=== PATIENT | male | born 1965 | race Caucasian/White ===

== ENCOUNTER 2022-10-11 08:16 | Day surgery (SDC) | payer BC ==
[2022-10-02 16:01] LABS: BASOPHILS # (AUTO) 0.1 X10'3 (0-0.2); BASOPHILS % (AUTO) 1.3 % (0-1); EOSINOPHILS # (AUTO) 0.2 X10'3 (0-0.9); EOSINOPHILS % (AUTO) 4.1 % (0-6); LYMPHOCYTES # (AUTO) 1.2 X10'3 (1.1-4.8); LYMPHOCYTES % (AUTO) 22.6 % (21-51); MEAN CORPUSCULAR HEMOGLOBIN 32.8 PG (27.0-31.0); MEAN CORPUSCULAR HGB CONC 33.9 g/dL (33.0-36.5); MEAN CORPUSCULAR VOLUME 96.6 FL (78-98); MEAN PLATELET VOLUME 6.8 FL (7.4-10.4); MONOCYTES # (AUTO) 0.6 X10'3 (0-0.9); MONOCYTES % (AUTO) 10.5 % (2-12); NEUTROPHILS # (AUTO) 3.3 X10'3 (1.8-7.7); NEUTROPHILS % (AUTO) 61.5 % (42-75); PRE OP HEMATOCRIT 37.4 % (42.0-52.0); PRE OP HEMOGLOBIN 12.7 g/dL (14.0-17.9); PRE OP PLATELET COUNT 230 X10'3 (140-440); RED BLOOD COUNT 3.87 X10'6 (4.70-6.10); RED CELL DISTRIBUTION WIDTH 12.8 % (11.5-14.5)
[2022-10-02 16:22] LABS: ALBUMIN 4.4 G/DL (3.4-5.0); ALBUMIN/GLOBULIN RATIO 1.4 (1.1-1.5); ALKALINE PHOSPHATASE 70 IU/L (46-116); BLOOD UREA NITROGEN 16 MG/DL (7-18); BUN/CREATININE RATIO 17.2 (5.4-32.0); CALCIUM 9.3 MG/DL (8.5-10.1); CHLORIDE 105 MMOL/L (99-107); CREATININE 0.93 MG/DL (0.60-1.10); PRE OP ALT 26 U/L (30-65); PRE OP ANION GAP 7 (8-16); PRE OP AST 27 U/L (10-37); PRE OP BILIRUB, TOTAL 0.8 MG/DL (0.0-1.0); PRE OP GLUCOSE 87 MG/DL (70-104); PRE OP POTASSIUM 4.1 MMOL/L (3.4-5.1); PRE OP SODIUM 139 MMOL/L (135-145); TOTAL CARBON DIOXIDE 26.8 MMOL/L (24-32); TOTAL PROTEIN 7.6 G/DL (6.4-8.2); eGFR 83 ML/MIN
[~2022-10-11] VITALS: Ht 172.7 cm; Wt 78.3 kg
[2022-10-11] VITALS (9 sets, daily range): BP systolic 152–196; BP diastolic 83–108
[~2022-10-11 08:16] MED LIST: ASPI-612 PO; ATOR-2 PO; BUPIVAcaine/PF 5 mg/ml 10ml ONE; LISI10TA27 PO; cefazolin 2gm/D5W 100mL 100 ML IV ONE; famotidine 20mg tablet PO ONE; ringers solution, lacted 1,000 ML IV SCH
[2022-10-11] MEDS ORDERED: LIDOcaine 0.5% (5mg/ml) 50ml vial ONE (08:33)
[2022-10-11] MEDS ORDERED: ondansetron/PF 4mg/2ml inj IV PRN (09:45)
[2022-10-11] MEDS ORDERED: meperidine/PF 25mg/ml syringe IV PRN ×3 (09:45)
[2022-10-11] MEDS ORDERED: ringers solution, lacted 1,000 ML IV SCH (09:45)
[2022-10-11] MEDS ORDERED: proCHLORperazine 10 MG/2 ml inj IV PRN (09:45)
[2022-10-11] MEDS ORDERED: morphine 4 MG/ML inj SYRINge IV PRN (09:45)
[2022-10-11] MEDS ORDERED: morphine 2 MG/ML inj. syringe IV PRN (09:45)
[2022-10-11] MEDS ORDERED: fentaNYL/PF 50MCG/1 ML 2ML syringe ONE (10:24)
[2022-10-11] MEDS ORDERED: midazolam 1 mg/ML 2ml injection ONE (10:24)
[2022-10-11] MEDS ORDERED: BUPIVAcaine/PF 5 mg/ml 10ml IJ ONE (10:42)
--- NOTE | 2022-10-11 10:54 | NUR ---
ALL DISCHARGE CRITERIA HAS BEEN MET. BP IS AT 196/106, UPDATED DR. TORRES AND INSTRUCTED PATIENT TO TAKE HOME ANTIHYPERTENSIVE MEDICATION AND APPROVED PATIENT TO GO HOME, DENIES PAIN, VOIDING AND ABLE TO SAFELY AMBULATE AND TRANSFER SELF. IV TAKEN OUT WITHOUT ANY COMPLICATIONS. ALL DISCHARGE INSTRUCTIONS COVERED WITH PATIENT AND ALL QUESTIONS ANSWERED. PATIENT TAKEN OUT VIA WHEELCHAIR WITH ALL BELONGINGS TO PERSONAL VEHICLE WHERE FAMILY DROVE PATIENT HOME. Addendum: 10/11/22 at 1232 by Luis A Harvey RN Amended: Links added.
--- NOTE | 2022-10-11 10:54 | NUR ---
Received from OR via [facility], accompanied by Anesthesiologist and report given by MELISSA Anesthesiologist. PATIENT WAKING UP, DENIES PAIN, V/S WNL, PIV 20G TO RIGHT HAND, LEFT WRIST DRESSING C/D/I. ICE AND ELEVATED LUE. Addendum: 10/11/22 at 1116 by Lusi A Harvey RN Amended: Links added.
== END 2022-10-11 12:24 | disposition home or self-care (01) ==
LOC: PAS 08:16 → EDBD 13:45
PROVIDERS: ATTEND Orthopaedic Surgery Hand Surgery
DX: G56.02 Carpal tunnel syndrome, left upper limb (principal); I10 Essential (primary) hypertension; F17.220 Nicotine dependence, chewing tobacco, uncomplicated; Z79.899 Other long term (current) drug therapy; Z79.82 Long term (current) use of aspirin; Z88.2 Allergy status to sulfonamides; Z98.890 Other specified postprocedural states; Z72.89 Other problems related to lifestyle; Z86.73 Personal history of transient ischemic attack (TIA), and cerebral infarction without residual deficits
CPT/HCPCS: 36415; 64721; 80053; 82948; 85025; 93005; J2175; J2250; J3010; J3490; J7030; J7120; Z7506; Z7512; A4215; A7000

== ENCOUNTER 2022-11-08 06:32 | Day surgery (SDC) | payer BC ==
[2022-11-04 11:28] LABS: BASOPHILS % (AUTO) 0.4 % (0-1); EOSINOPHILS # (AUTO) 0.1 X10'3 (0-0.9); EOSINOPHILS % (AUTO) 1.4 % (0-6); LYMPHOCYTES # (AUTO) 1.4 X10'3 (1.1-4.8); LYMPHOCYTES % (AUTO) 21.9 % (21-51); MEAN CORPUSCULAR HEMOGLOBIN 32.8 PG (27.0-31.0); MEAN CORPUSCULAR HGB CONC 34.3 g/dL (33.0-36.5); MEAN CORPUSCULAR VOLUME 95.4 FL (78-98); MEAN PLATELET VOLUME 6.4 FL (7.4-10.4); MONOCYTES # (AUTO) 0.5 X10'3 (0-0.9); MONOCYTES % (AUTO) 8.2 % (2-12); NEUTROPHILS # (AUTO) 4.2 X10'3 (1.8-7.7); NEUTROPHILS % (AUTO) 68.1 % (42-75); PRE OP HEMATOCRIT 40.5 % (42.0-52.0); PRE OP HEMOGLOBIN 13.9 g/dL (14.0-17.9); PRE OP PLATELET COUNT 281 X10'3 (140-440); RED BLOOD COUNT 4.25 X10'6 (4.70-6.10); RED CELL DISTRIBUTION WIDTH 12.5 % (11.5-14.5)
[2022-11-04 11:35] LABS: ALBUMIN 4.8 G/DL (3.4-5.0); ALBUMIN/GLOBULIN RATIO 1.4 (1.1-1.5); ALKALINE PHOSPHATASE 76 IU/L (46-116); BLOOD UREA NITROGEN 13 MG/DL (7-18); BUN/CREATININE RATIO 13.5 (10.0-20.0); CALCIUM 9.5 MG/DL (8.5-10.1); CHLORIDE 100 MMOL/L (99-107); CREATININE 0.96 MG/DL (0.60-1.10); PRE OP ALT 38 U/L (30-65); PRE OP ANION GAP 12 (8-16); PRE OP AST 31 U/L (10-37); PRE OP BILIRUB, TOTAL 0.9 MG/DL (0.0-1.0); PRE OP GLUCOSE 118 MG/DL (70-104); PRE OP POTASSIUM 4.7 MMOL/L (3.4-5.1); PRE OP SODIUM 136 MMOL/L (135-145); TOTAL CARBON DIOXIDE 24.1 MMOL/L (24-32); TOTAL PROTEIN 8.3 G/DL (6.4-8.2); eGFR 80 ML/MIN
[~2022-11-08] VITALS: Ht 172.7 cm; Wt 78.7 kg
[~2022-11-08 06:32] MED LIST changes: -BUPIVAcaine/PF 5 mg/ml 10ml ONE; +FAMO-128 PO; +FOLIC ACID; +IBUP-24 PO; +LIDOcaine 0.5% (5mg/ml) 50ml vial ONE; +LORA10TA61 PO; +VITAMIN D3
[2022-11-08] MEDS ORDERED: BUPIVAcaine/PF 2.5mg/ml (0.25%) 10ml vial ONE (06:43)
[2022-11-08 08:09] VITALS: BP 134/87
[2022-11-08] MEDS ORDERED: fentaNYL/PF 50MCG/1 ML 2ML syringe ONE (08:18)
[2022-11-08] MEDS ORDERED: midazolam 1 mg/ML 2ml injection ONE (08:18)
[2022-11-08 08:37] VITALS: BP 155/93
--- NOTE | 2022-11-08 08:37 | NUR ---
Received from OR via [facility], accompanied by Anesthesiologist and report given by MELISSA Anesthesiologist. PATIENT WAKING UP, DENIES PAIN, V/S WNL, SCD ON, PIV 20G TO LEFT HAND, RIGHT WRIST DRESSING C/D/I. ICE AND ELEVATED RUE. Addendum: 11/08/22 at 0857 by Luis A Harvey RN Amended: Links added.
[2022-11-08 08:40] VITALS: BP 162/94
[2022-11-08 08:50] VITALS: BP 160/85
[2022-11-08 09:00] VITALS: BP 150/95
--- NOTE | 2022-11-08 09:17 | NUR ---
ALL DISCHARGE CRITERIA HAS BEEN MET. VSS, PAIN AT A TOLERABLE LEVEL, VOIDING AND ABLE TO SAFELY AMBULATE AND TRANSFER SELF. IV TAKEN OUT WITHOUT ANY COMPLICATIONS. ALL DISCHARGE INSTRUCTIONS COVERED WITH PATIENT AND ALL QUESTIONS ANSWERED. PATIENT TAKEN OUT VIA WHEELCHAIR WITH ALL BELONGINGS TO PERSONAL VEHICLE WHERE FAMILY DROVE PATIENT HOME. Addendum: 11/08/22 at 0917 by Luis A Harvey RN Amended: Links added.
== END 2022-11-08 09:17 | disposition home or self-care (01) ==
LOC: EDBD → PAS 06:32
PROVIDERS: ATTEND Orthopaedic Surgery Hand Surgery
DX: G56.01 Carpal tunnel syndrome, right upper limb (principal); I10 Essential (primary) hypertension; Z79.899 Other long term (current) drug therapy; Z98.890 Other specified postprocedural states; Z72.89 Other problems related to lifestyle; Z88.2 Allergy status to sulfonamides; Z79.82 Long term (current) use of aspirin
CPT/HCPCS: 29848; 36415; 80053; 82948; 85025; J0690; J2250; J3010; J3490; J7030; J7120; Z7506; Z7512; A4215; A7000